=== PATIENT | male | born 1975 | race Hispanic/Latino ===

== ENCOUNTER 2017-04-03 03:16 | Emergency (ER) | payer OTHER ==
[2017-04-03 03:45] LABS: BASOPHILS % (AUTO) 0.7 % (0.0-5.0); EOSINOPHILS % (AUTO) 2.4 % (0.0-8.0); HEMATOCRIT 44.9 % (42-54); MEAN CORPUSCULAR HEMOGLOBIN 28.7 pg (27.0-33.0); MONOCYTES % (AUTO) 6.4 % (3.0-13.0); NEUTROPHILS % (AUTO) 53.5 % (40.0-77.0); NUCLEATED RED BLOOD CELLS 0.1 % (0.0-0.19); PLATELET COUNT (AUTO) 168 K/uL (130-400); RED BLOOD CELL COUNT(AUTO) 5.48 MIL/uL (4.50-6.20); WHITE BLOOD COUNT (AUTO) 9.7 K/uL (4.8-10.8)
[2017-04-03 04:05] LABS: CARBON DIOXIDE 24 mmol/L (21-32); CHLORIDE 95 mmol/L (101-111); CREATININE 0.8 mg/dL (0.5-1.5); GLOMERULAR FILTR. RATE CALC 113 mL/min (>60); GLUCOSE,RANDOM 185 mg/dL (70-105); POTASSIUM 3.5 mmol/L (3.5-5.1); SODIUM SERUM 131 mmol/L (136-145); UREA NITROGEN, BLOOD 14 mg/dL (7-18)
[2017-04-03 04:19] LABS: CREATINE KINASE MB < 0.5 ng/mL (0.5-3.6); CREATINE KINASE, TOTAL 150 U/L (21-232)
== END 2017-04-03 05:30 | disposition home or self-care (01) ==
LOC: EDH 03:16
DX: I49.1 Atrial premature depolarization (principal); R00.2 Palpitations; R73.9 Hyperglycemia, unspecified
CPT/HCPCS: 36415; 80048; 82550; 82553; 84484; 85025; 93005

== ENCOUNTER 2020-10-14 21:47 | Emergency (ER) | payer SELFPAY ==
[~2020-10-14] VITALS: Ht 175.3 cm; Wt 108.9 kg
[2020-10-14 22:56] VITALS: BP 152/89
[2020-10-15 00:37] LABS: BASOPHILS % (AUTO) 0.4 % (0.0-5.0); EOSINOPHILS % (AUTO) 0.2 % (0.0-8.0); HEMATOCRIT 45.8 % (42-54); LYMPHOCYTES % (AUTO) 18.6 % (21.0-51.0); MEAN CORPUSCULAR HEMOGLOBIN 31.3 pg (27.0-33.0); MEAN CORPUSCULAR HGB CONC 37.8 g/dL (32.0-36.0); MEAN CORPUSCULAR VOLUME 82.8 fL (79-99); MONOCYTES % (AUTO) 4.4 % (3.0-13.0); PLATELET COUNT (AUTO) 255 K/uL (130-400); RED BLOOD CELL COUNT(AUTO) 5.53 MIL/uL (4.50-6.20); RED CELL DISTRIBUTION WIDTH 14.3 % (11.0-15.5); WHITE BLOOD COUNT (AUTO) 18.6 K/uL (4.8-10.8)
[2020-10-15 00:55] LABS: B-TYPE NATRIURETIC PEPTIDE < 5 pg/mL (0-100)
[2020-10-15 00:56] LABS: PARTIAL THROMBOPLASTIN TIME 27.3 SEC (26.3-35.5)
[2020-10-15 01:31] LABS: POTASSIUM 5.3 mmol/L (3.5-5.1)
[2020-10-15 01:36] LABS: CRP QUANTITATIVE 13.6 mg/L (0.00-9.0)
[2020-10-15 02:20] LABS: BILIRUBIN,TOTAL 0.9 mg/dL (0.2-1.0); CREATININE 0.8 mg/dL (0.5-1.5); TOTAL PROTEIN, SERUM 8.7 g/dL (6.0-8.3)
[2020-10-15 02:21] LABS: ALBUMIN 3.8 g/dL (3.5-5.0)
[2020-10-15] MEDS ORDERED: PIP/TAZ ZOSYN 3.375G 3.375 GM VIAL IVPB ONE (02:30)
[2020-10-15] MEDS ORDERED: LACTATED RINGERS 1000ML 1,000 ML IV ONE ×2 (02:30)
[2020-10-15] MEDS ORDERED: IOHEXOL 350 MG/ML 100ML INFUS..BTL IV ONE (02:59)
[2020-10-15] MEDS ORDERED: ZOSYN 3.375GM+NS 50ML 50 ML IV ONE (03:00)
[2020-10-15] MEDS ORDERED: KETOROLAC 30MG VIAL (30MG/ML) IV ONE (03:30)
[2020-10-15 07:51] LABS: BASOPHILS % (AUTO) 0.3 % (0.0-5.0); EOSINOPHILS % (AUTO) 0.4 % (0.0-8.0); HEMATOCRIT 41.2 % (42-54); LYMPHOCYTES % (AUTO) 24.3 % (21.0-51.0); MEAN CORPUSCULAR HEMOGLOBIN 29.9 pg (27.0-33.0); MEAN CORPUSCULAR HGB CONC 36.2 g/dL (32.0-36.0); MEAN CORPUSCULAR VOLUME 82.7 fL (79-99); MONOCYTES % (AUTO) 4.5 % (3.0-13.0); NEUTROPHILS % (AUTO) 70.2 % (40.0-77.0); PLATELET COUNT (AUTO) 195 K/uL (130-400); RED BLOOD CELL COUNT(AUTO) 4.98 MIL/uL (4.50-6.20); RED CELL DISTRIBUTION WIDTH 14.3 % (11.0-15.5); WHITE BLOOD COUNT (AUTO) 11.6 K/uL (4.8-10.8)
[2020-10-15] MEDS ORDERED: FAMOTIDINE 20MG VIAL IV ONE (09:00)
[2020-10-15] MEDS ORDERED: HYOSCYAMINE SULFATE 0.125 MG TAB.SUBL SL ONE (09:00)
[2020-10-15] MEDS ORDERED: SUCRALFATE 1 GM TABLET PO SCH (09:00)
[2020-10-15 09:27] VITALS: BP 145/74
== END 2020-10-15 09:47 | disposition home or self-care (01) ==
LOC: EDH 21:47
DX: K82.8 Other specified diseases of gallbladder (principal); D72.829 Elevated white blood cell count, unspecified; R10.84 Generalized abdominal pain; E66.9 Obesity, unspecified; Z79.1 Long term (current) use of non-steroidal anti-inflammatories (NSAID)
CPT/HCPCS: 36415; 71045; 74018; 74177; 76705; 80053; 82550; 83690; 83880; 84484; 85025 ×2; 85610 ×2; 85730; 86140; 93005; 96365; 96366; 96375; 99285; J1885; J2543; J3490; J7120; Q9967